=== PATIENT | female | born 1935 | race Caucasian/White ===

== ENCOUNTER → 2016-12-01 | Outpatient (CLI) | payer OTHER, MEDICARE | LOC: BMCIMAGING 13:34 | PROVIDERS: ATTEND Internal Medicine | DX: Z12.31 Encounter for screening mammogram for malignant neoplasm of breast (principal) | CPT/HCPCS: G0202 ==

== ENCOUNTER → 2016-12-04 | Outpatient (CLI) | payer OTHER, MEDICARE | LOC: FIMAGING 11:20 | PROVIDERS: ATTEND Internal Medicine | DX: Z12.39 Encounter for other screening for malignant neoplasm of breast (principal); N63 Unspecified lump in breast; R92.1 Mammographic calcification found on diagnostic imaging of breast | CPT/HCPCS: 76641; G0204 ==

== ENCOUNTER → 2017-05-18 | Outpatient (CLI) | payer OTHER, MEDICARE | LOC: FIMAGING 11:43 | PROVIDERS: ATTEND Internal Medicine | DX: R92.0 Mammographic microcalcification found on diagnostic imaging of breast (principal) | CPT/HCPCS: G0206 ==

== ENCOUNTER 2017-10-29 06:41 | Emergency (ER) | payer OTHER, MEDICARE ==
[2017-10-29 06:57] LABS: PLATELET COUNT 154 10^3/uL (150-400)
[2017-10-29] MEDS ORDERED: ACETAMINOPHEN 500 MG TAB ONE (06:59)
[2017-10-29] MEDS ORDERED: ACETAMINOPHEN 500 MG TAB PO ONE (07:01)
[2017-10-29] MEDS ORDERED: NS 1,000 ML IV ONE (07:04)
--- NOTE | 2017-10-29 07:04 | EDPHY ---
H & P Time Seen by Provider: 10/29/17 07:02 HPI/ROS: Chief complaint. Shortness of breath, fever HPI. 82-year-old female presents to the emergency department with 3 day history of chills and fever. She and her return over the weekend from a 10 day trip to [place]. No known exposures. She denies congestion or upper respiratory symptoms. Denies cough. No chest pain. Some short of breath and increased work to breathe. No abdominal pain, nausea vomiting or diarrhea. No rash. No urinary symptoms. No unusual pain or swelling to her legs. ROS Constitutional. Fever and chills Eyes. no problems with vision ENT. no sore throat, no nasal drainage Cardiovascular. no chest pain Respiratory. Slight shortness of breath Abdominal. no abdominal pain, no nausea/vomiting, no diarrhea . no problems urinating MS. no calf pain/swelling, no neck/back pain, no joint pain Skin. no rash Lymph. no swollen glands Neuro. no headache, no dizziness, no difficulty walking or with speech Past Medical/Surgical History: Arthritis, asthma, hypertension, back surgery Social History: , nonsmoker, no alcohol Smoking Status: Never smoked Physical Exam: General Appearance: Alert well-developed female mild distress vital signs significant for temp 38.5 degrees. Eyes: Pupils equal and round no pallor or injection. ENT, Mouth: Mucous membranes are dry. Respiratory: There are no retractions, lungs are clear to auscultation. Cardiovascular: Regular rate and rhythm. Gastrointestinal: Abdomen is soft and nontender, no masses, bowel sounds normal. Neurological: Awake and alert, sensory and motor exams grossly normal. Skin: Warm and dry, no rashes. Musculoskeletal: Neck is supple nontender. Extremities symmetrical, full range of motion. Psychiatric: Patient is oriented X 3, there is no agitation. Constitutional: Initial Vital Signs Temperature (C) 38.5 C H 10/29/17 06:44 Heart Rate 97 10/29/17 06:44 Respiratory Rate 20 10/29/17 06:44 Blood Pressure 146/70 H 10/29/17 06:44 O2 Sat (%) 93 10/29/17 06:44 O2 Delivery Mode Nasal Cannula O2 (L/minute) 1 Allergies/Adverse Reactions: No Known Allergies Allergy (Verified 10/29/17 06:43) Home Medications: Medication Instructions Recorded Amiloride 5 mg PO DAILY 03/22/16 Ascorbic Acid [Vitamin C 250 mg 250 mg PO .Q 3 DAYS 03/22/16 (*)] Cholecalciferol Vit D3 [Vitamin D3 2,000 units PO DAILY 03/22/16 2000 units tab (OTC)] Ferrous Sulfate [Ferrous Sulf 325 325 mg PO .Q 3 DAYS 03/22/16 MG (*)] Magnesium Oxide 250 mg PO BID 03/22/16 Nebivolol HCl [Bystolic 5 mg (*)] 5 mg PO DAILY 03/22/16 Olmesartan/Hydrochlorothiazide 1 each PO DAILY 03/22/16 [Benicar Hct 40-25 mg Tablet] celeCOXIB [CeleBREX] 100 mg PO BID 03/22/16 traMADol [Ultram 50 mg (*)] 50 mg PO BID 03/22/16 Albuterol [Proventil Inhaler HFA 2 puffs IH Q4 #1 mdi 03/23/16 (*)] Oseltamivir Phosphate [Tamiflu 75 75 mg PO BID #10 cap 03/23/16 mg (*)] Cephalexin [Keflex (*)] 500 mg PO TID #21 cap 10/29/17 Medical Decision Making - Diagnostics Imaging Results: Imaging Impressions Chest X-Ray 10/29/17 07:03 Impression: 1. Suspect airways disease. 2. Basilar opacities are probably atelectasis or scarring. 3. Borderline cardiac enlargement. Chest x-ray interpreted by me shows no obvious pneumonia Procedures: IV normal saline with initial target of 1 L. Sepsis workup. ED Course/Re-evaluation: Re-evaluation 8:00 a.m.. Patient is stable and without complaints Urine is sent for culture sensitivity IV Rocephin in the emergency department Re-evaluation 9:05 a.m. Patient is stable. She and I discussed imaging and lab results. We discussed treatment plan including criteria for return importance of follow-up and further evaluation. She expresses understanding and agreement Differential Diagnosis: I considered sepsis, pneumonia. No evidence for pneumonia. No evidence for sepsis. Mild dehydration. Evidence for urinary tract infection. I think that the patient can be safely treated as an outpatient. - Data Points Laboratory Results: Laboratory Results 10/29/17 06:45 10/29/17 06:45 10/29/17 10/29/17 10/29/17 08:35 07:24 06:45 WBC RBC Hgb Hct MCV MCH MCHC RDW Plt Count MPV Neut % (Auto) Lymph % (Auto) [place] % (Auto) Eos % (Auto) Baso % (Auto) Nucleat RBC Rel Count Absolute Neuts (auto) Absolute Lymphs (auto) Absolute Monos (auto) Absolute Eos (auto) Absolute Basos (auto) Absolute Nucleated RBC Immature Gran % Immature Gran # RBC/WBC/PLT Morphology Platelet Estimate PT INR APTT VBG Lactic Acid 1.7 mmol/L mmol/L (0.7-2.1) Sodium Potassium Chloride Carbon Dioxide Anion Gap BUN Creatinine Estimated GFR Glucose Calcium Total Bilirubin 0.7 mg/dL mg/dL (0.1-1.4) Urine Color YELLOW Urine Appearance HAZY Urine pH 7.0 (5.0-7.5) Ur Specific [place] 1.014 (1.002-1.030) Urine Protein 2+ H (NEGATIVE) Urine Ketones NEGATIVE (NEGATIVE) Urine Blood 1+ H (NEGATIVE) Urine Nitrate POSITIVE H (NEGATIVE) Urine Bilirubin NEGATIVE (NEGATIVE) Urine Urobilinogen NEGATIVE EU EU (0.2-1.0) Ur Leukocyte Esterase TRACE H (NEGATIVE) Urine RBC 10-15 /hpf H /hpf (0-3) Urine WBC 25-50 /hpf H /hpf (0-3) Ur Epithelial Cells TRACE /lpf /lpf (NONE-1+) Urine Bacteria TRACE /hpf H /hpf (NONE SEEN) Urine Mucus TRACE /lpf /lpf (NONE-1+) Urine Glucose NEGATIVE (NEGATIVE) 10/29/17 10/29/17 10/29/17 06:45 06:45 06:45 WBC 5.84 10^3/uL 10^3/uL (3.80-9.50) RBC 4.31 10^6/uL 10^6/uL (4.18-5.33) Hgb 13.5 g/dL g/dL (12.6-16.3) Hct 40.0 % % (38.0-47.0) MCV 92.8 fL fL (81.5-99.8) MCH 31.3 pg pg (27.9-34.1) MCHC 33.8 g/dL g/dL (32.4-36.7) RDW 12.6 % % (11.5-15.2) Plt Count 154 10^3/uL 10^3/uL (150-400) MPV 10.4 fL fL (8.7-11.7) Neut % (Auto) 86.7 % H % (39.3-74.2) Lymph % (Auto) 4.3 % L % (15.0-45.0) [place] % (Auto) 7.7 % % (4.5-13.0) Eos % (Auto) 0.5 % L % (0.6-7.6) Baso % (Auto) 0.3 % % (0.3-1.7) Nucleat RBC Rel Count 0.0 % % (0.0-0.2) Absolute Neuts (auto) 5.06 10^3/uL 10^3/uL (1.70-6.50) Absolute Lymphs (auto) 0.25 10^3/uL L 10^3/uL (1.00-3.00) Absolute Monos (auto) 0.45 10^3/uL 10^3/uL (0.30-0.80) Absolute Eos (auto) 0.03 10^3/uL 10^3/uL (0.03-0.40) Absolute Basos (auto) 0.02 10^3/uL 10^3/uL (0.02-0.10) Absolute Nucleated RBC 0.00 10^3/uL 10^3/uL (0-0.01) Immature Gran % 0.5 % % (0.0-1.1) Immature Gran # 0.03 10^3/uL 10^3/uL (0.00-0.10) RBC/WBC/PLT Morphology TNP Platelet Estimate TNP PT 13.5 SEC SEC (12.0-15.0) INR 1.01 (0.83-1.16) APTT 30.6 SEC SEC (23.0-38.0) VBG Lactic Acid Sodium 141 mEq/L mEq/L (135-145) Potassium 4.9 mEq/L mEq/L (3.3-5.0) Chloride 106 mEq/L mEq/L (97-110) Carbon Dioxide 22 mEq/l mEq/l (22-31) Anion Gap 13 mEq/L mEq/L (8-16) BUN 38 mg/dL H mg/dL (7-23) Creatinine 1.3 mg/dL H mg/dL (0.6-1.0) Estimated GFR 39 Glucose 167 mg/dL H mg/dL (70-100) Calcium 9.7 mg/dL mg/dL (8.5-10.4) Total Bilirubin Urine Color Urine Appearance Urine pH Ur Specific [place] Urine Protein Urine Ketones Urine Blood Urine Nitrate Urine Bilirubin Urine Urobilinogen Ur Leukocyte Esterase Urine RBC Urine WBC Ur Epithelial Cells Urine Bacteria Urine Mucus Urine Glucose Medications Given: Ceftriaxone Sodium/Dextrose (Rocephin 1 Gm (Premix)) 50 mls @ 100 mls/hr IV EDNOW ONE PRN Reason: Protocol Stop: 10/29/17 09:32 Last Admin: 10/29/17 09:16 Dose: 50 mls Discontinued Medications Acetaminophen (Tylenol) 1,000 mg PO EDNOW ONE Stop: 10/29/17 07:02 Last Admin: 10/29/17 07:03 Dose: 1,000 mg Sodium Chloride (Ns) 1,000 mls @ 0 mls/hr IV EDNOW ONE; Wide Open PRN Reason: Protocol Stop: 10/29/17 07:05 Last Admin: 10/29/17 07:06 Dose: 1,000 mls Departure - Departure Disposition: Home, Routine, Self-Care Clinical Impression: Urinary tract infection Qualifiers: Urinary tract infection type: site unspecified Hematuria presence: with hematuria Qualified Code(s): N39.0 - Urinary tract infection, site not specified ; R31.9 - Hematuria, unspecified; R31.9 - Hematuria, unspecified Condition: Good Instructions: Urinary Tract Infection in Women (ED) Additional Instructions: Increase fluids as your blood work shows you to be somewhat dehydrated. Cephalexin as antibiotic. Tylenol 650 mg every 4-6 hours, ibuprofen 400 mg every 6 hr as needed for fever Return for worsening fever, vomiting, abdominal discomfort Recheck in 2 days if not improving Referrals: Patient,NotPresent [Unknown] - As per Instructions Prescriptions: Cephalexin [Keflex (*)] 500 mg PO TID #21 cap
[2017-10-29 07:18] LABS: INR 1.01 (0.83-1.16); PROTIME(PATIENT) 13.5 SEC (12.0-15.0)
[2017-10-29 09:41] VITALS: BP 98/59
== END 2017-10-29 09:39 | disposition home or self-care (01) ==
LOC: EDUNIT#
DX: N39.0 Urinary tract infection, site not specified (principal); J45.909 Unspecified asthma, uncomplicated; I10 Essential (primary) hypertension; B96.20 Unspecified Escherichia coli [E. coli] as the cause of diseases classified elsewhere; E86.9 Volume depletion, unspecified
CPT/HCPCS: 71046; 96365; 99284; J0696

== ENCOUNTER 2017-10-30 09:29 | Inpatient (IN) | payer OTHER, MEDICARE ==
--- NOTE | 2017-10-30 09:41 | EDPHY ---
HPI/HX/ROS/PE/MDM Narrative: CHIEF COMPLAINT: E. coli in blood culture HPI: The patient is an 82 y/o female returning to the emergency department after her blood cultures from yesterday revealed E. coli. She recently returned from a road trip to [place]. Yesterday she was seen in this emergency department for shortness of breath, chills, and fever. She was started on Cephalexin and discharged home. This morning her blood cultures revealed E. coli and she was advised to return to the emergency department for admission to the hospital. She is still feeling short of breath. Denies chest pain, abdominal pain, vomiting, diarrhea, urinary complaints, numbness, paresthesias, fever. REVIEW OF SYSTEMS: Aside from elements discussed in the HPI, a comprehensive 10-point review of systems was reviewed and is negative. PMH: Arthritis, asthma, hypertension, back surgery SOCIAL HISTORY: at bedside, lives in [place], retired PHYSICAL EXAM: General: Patient is alert, in no acute distress. ENT: Eyes are normal to inspection. ENT inspection normal. Neck: Normal inspection. Full range of motion. Respiratory: No respiratory distress. Breath sounds normal bilaterally. Cardiovascular: Regular rate and rhythm. Strong peripheral pulses. Normal cap refill. Abdomen: The abdomen is nontender to palpation. There are no peritoneal signs. There are normal bowel sounds. Back: Normal to inspection. No tenderness to palpation. Skin: Normal color. No rash. Warm and dry. Extremities: Normal appearance. Full range of motion. Neuro: Oriented x3. Normal motor function. Normal sensory function. ED Course: 1140: Patient's lactate has decreased from 2.2 to 1.4. 2gm IV Rocephin and fluids given. 1142: Consulted with hospitalist service, Dr. Godfrey accepts admission of this patient. Patient is comfortable with plan for admission. MDM: This patient presents with E.coli bacteremia, presumably from a urinary source. She looks remarkably well on exam, and shows no signs of septic shock. She will require treatment with IV antibiotics and careful monitoring. I see no signs of PNA, PE, ACS or acute abdomen. - Data Points Imaging Results: Imaging Impressions Chest X-Ray 10/30/17 10:35 Impression: Bronchitis and bibasilar atelectasis. No definite pneumonia or effusion. Imaging: I viewed and interpreted images myself Laboratory Results: Laboratory Results 10/30/17 09:55 10/30/17 09:55 10/30/17 10/30/17 10/30/17 11:18 11:18 09:55 WBC RBC Hgb Hct MCV MCH MCHC RDW Plt Count MPV Neut % (Auto) Lymph % (Auto) [place] % (Auto) Eos % (Auto) Baso % (Auto) Nucleat RBC Rel Count Absolute Neuts (auto) Absolute Lymphs (auto) Absolute Monos (auto) Absolute Eos (auto) Absolute Basos (auto) Absolute Nucleated RBC Immature Gran % Immature Gran # RBC/WBC/PLT Morphology Platelet Estimate VBG Lactic Acid 1.4 mmol/L mmol/L (0.7-2.1) Sodium 140 mEq/L mEq/L (135-145) Potassium 4.9 mEq/L mEq/L (3.3-5.0) Chloride 105 mEq/L mEq/L (97-110) Carbon Dioxide 24 mEq/l mEq/l (22-31) Anion Gap 11 mEq/L mEq/L (8-16) BUN 42 mg/dL H mg/dL (7-23) Creatinine 1.2 mg/dL H mg/dL (0.6-1.0) Estimated GFR 43 Glucose 175 mg/dL H mg/dL (70-100) Calcium 9.3 mg/dL mg/dL (8.5-10.4) Urine Color YELLOW Urine Appearance CLEAR Urine pH 7.0 (5.0-7.5) Ur Specific [place] 1.014 (1.002-1.030) Urine Protein NEGATIVE (NEGATIVE) Urine Ketones NEGATIVE (NEGATIVE) Urine Blood NEGATIVE (NEGATIVE) Urine Nitrate NEGATIVE (NEGATIVE) Urine Bilirubin NEGATIVE (NEGATIVE) Urine Urobilinogen NEGATIVE EU EU (0.2-1.0) Ur Leukocyte Esterase NEGATIVE (NEGATIVE) Urine Glucose NEGATIVE (NEGATIVE) 10/30/17 10/30/17 09:55 09:55 WBC 5.19 10^3/uL 10^3/uL (3.80-9.50) RBC 4.28 10^6/uL 10^6/uL (4.18-5.33) Hgb 13.3 g/dL g/dL (12.6-16.3) Hct 40.3 % % (38.0-47.0) MCV 94.2 fL fL (81.5-99.8) MCH 31.1 pg pg (27.9-34.1) MCHC 33.0 g/dL g/dL (32.4-36.7) RDW 12.8 % % (11.5-15.2) Plt Count 171 10^3/uL 10^3/uL (150-400) MPV 10.9 fL fL (8.7-11.7) Neut % (Auto) 81.8 % H % (39.3-74.2) Lymph % (Auto) 11.4 % L % (15.0-45.0) [place] % (Auto) 3.9 % L % (4.5-13.0) Eos % (Auto) 2.1 % % (0.6-7.6) Baso % (Auto) 0.6 % % (0.3-1.7) Nucleat RBC Rel Count 0.0 % % (0.0-0.2) Absolute Neuts (auto) 4.25 10^3/uL 10^3/uL (1.70-6.50) Absolute Lymphs (auto) 0.59 10^3/uL L 10^3/uL (1.00-3.00) Absolute Monos (auto) 0.20 10^3/uL L 10^3/uL (0.30-0.80) Absolute Eos (auto) 0.11 10^3/uL 10^3/uL (0.03-0.40) Absolute Basos (auto) 0.03 10^3/uL 10^3/uL (0.02-0.10) Absolute Nucleated RBC 0.00 10^3/uL 10^3/uL (0-0.01) Immature Gran % 0.2 % % (0.0-1.1) Immature Gran # 0.01 10^3/uL 10^3/uL (0.00-0.10) RBC/WBC/PLT Morphology TNP Platelet Estimate TNP VBG Lactic Acid 2.2 mmol/L H D mmol/L (0.7-2.1) Sodium Potassium Chloride Carbon Dioxide Anion Gap BUN Creatinine Estimated GFR Glucose Calcium Urine Color Urine Appearance Urine pH Ur Specific [place] Urine Protein Urine Ketones Urine Blood Urine Nitrate Urine Bilirubin Urine Urobilinogen Ur Leukocyte Esterase Urine Glucose Medications Given: Discontinued Medications Sodium Chloride (Ns) 1,900 mls @ 3,800 mls/hr 30 ml/kg infuse over 30 min ( 1900 ml) IV EDNOW ONE PRN Reason: Protocol Stop: 10/30/17 10:39 Last Admin: 10/30/17 10:18 Dose: 1,900 mls General Time Seen by Provider: 10/30/17 09:35 Initial Vital Signs: Initial Vital Signs Temperature (C) 36.8 C 10/30/17 09:35 Heart Rate 75 10/30/17 09:35 Respiratory Rate 22 H 10/30/17 09:35 Blood Pressure 123/73 H 10/30/17 09:35 O2 Sat (%) 91 L 10/30/17 09:35 O2 Delivery Mode Room Air Allergies/Adverse Reactions: No Known Allergies Allergy (Verified 10/30/17 09:34) Home Medications: Medication Instructions Recorded Amiloride 5 mg PO DAILY 03/22/16 Cholecalciferol Vit D3 [Vitamin D3 2,000 units PO DAILY 03/22/16 2000 units tab (OTC)] Ferrous Sulfate [Ferrous Sulf 325 325 mg PO DAILY 03/22/16 MG (*)] Magnesium Oxide 500 mg PO HS 03/22/16 Nebivolol HCl [Bystolic 5 mg (*)] 5 mg PO DAILY 03/22/16 Olmesartan/Hydrochlorothiazide 1 each PO DAILY 03/22/16 [Benicar Hct 40-25 mg Tablet] celeCOXIB [CeleBREX] 100 mg PO BID 03/22/16 traMADol [Ultram 50 mg (*)] 50 mg PO DAILY 03/22/16 Ascorbic Acid [Vitamin C 500 mg 500 mg PO DAILY 10/30/17 (*)] Aspirin [Aspirin 81mg (*)] 81 mg PO DAILY 10/30/17 levOFLOXACIN [levAQUIN (*)] 750 mg PO Q2D #5 tab 11/01/17 Departure - Departure Disposition: [facility] Clinical Impression: Shortness of breath, Bacteremia due to Escherichia coli Condition: Fair Report Scribed for: Sam Hunter Report Scribed by: Klarissa Espinal Date of Report: 10/30/17 Time of Report: 09:41 Physician Review and Approval Statement: Portions of this note were transcribed by an ED scribe. I personally performed the history, physical exam, and medical decision making; and confirm the accuracy of the information in the transcribed note.
[2017-10-30 10:07] LABS: PLATELET COUNT 171 10^3/uL (150-400)
[2017-10-30] MEDS ORDERED: NS 1,900 ML IV ONE (10:10)
[2017-10-30] MEDS ORDERED: cefTRIAXone 2 GM in STERILE WATER INJ 20 ML IV ONE (11:35)
[2017-10-30] MEDS ORDERED: ACETAMINOPHEN 325 MG TAB PO PRN (12:11)
[2017-10-30] MEDS ORDERED: ONDANSETRON 4 MG/2 ML VIAL IVP PRN (12:11)
[2017-10-30] MEDS ORDERED: ONDANSETRON DISINTEGRATING 4 MG TAB PO PRN (12:11)
[2017-10-30] MEDS ORDERED: traMADol 50 MG TAB PO PRN (12:14)
--- NOTE | 2017-10-30 12:16 | ASMTCMCOM ---
CM Note CM Note Notes: Pt admitted for bacteremia r/t E. coli. Pt was seen in the ED yesterday and discharged home w/Keflex. Pt's blood cultures came back +E.coli so pt was asked to return to [facility] ED. Pt lives in [place] with her , Joshua. Pt's PCP is Dr Dawna Francis. Anticipate DC home w/ family once stabilized. CM to follow. Date Signed: 10/30/2017 12:15 PM Electronically Signed By:Marielos Yanez RN
[2017-10-30] MEDS: ACETAMINOPHEN 500 MG TAB PO SCH ×2 (13:52→21:05)
--- NOTE | 2017-10-30 15:10 | PDGENHP ---
History and Physical - Chief Complaint fever, chills, bacteremia - History of Present Illness 82 yo female with h/o arthritis and hypertension was called back to the ED for positive blood cultures one day after evaluation for fever. She and her recently drove home from [place], arriving home on Thursday. She noticed on Thursday at a PT appointment for her shoulder that she felt cold / chilled. She later developed rigors, then had a fever to 103. During the night she had ongoing shaking chills. A physician made a house call visit and no treatment was provided other than tylenol. Her later called an ambulance and she was brought to the ED on 10/29. Blood cultures were drawn. A UA was done and was abnormal. She received IV Ceftriaxone and was discharged home with oral antibiotics as she had a normal lactate, normal wbc count, and stable vital signs. Today, she was called back to the ED due to positive blood cultures with E coli. She actually feels a little better today, is no longer having fevers, rigors or chills. She denies urinary symptoms. Her biggest complaint today and the main symptom she had yesterday is dyspnea on exertion. She denies CP or pleuritic symptoms, but feels more short of breath than normal. She has an O2 sat of 90% on room air. She states this is normal for her. She has a h/o asthma, but denies an active exacerbation. No wheezing. In the ED, she was given her 2nd dose of Ceftriaxone and is admitted for further management. History Information - Allergies/Home Medication List Allergies/Adverse Reactions: No Known Allergies Allergy (Verified 10/30/17 09:34) Home Medications: Amiloride 5 mg PO DAILY 03/22/16 [Last Taken 10/30/17] Cholecalciferol Vit D3 [Vitamin D3 2000 units tab (OTC)] 2,000 units PO DAILY [Last Taken 10/30/17] Ferrous Sulfate [Ferrous Sulf 325 MG (*)] 325 mg PO DAILY 03/22/16 [Last Taken 10/30/17] Magnesium Oxide 500 mg PO HS 03/22/16 [Last Taken 10/29/17] Nebivolol HCl [Bystolic 5 mg (*)] 5 mg PO DAILY 03/22/16 [Last Taken 10/30/17] Olmesartan/Hydrochlorothiazide [Benicar Hct 40-25 mg Tablet] 1 each PO DAILY [Last Taken 10/30/17] celeCOXIB [CeleBREX] 100 mg PO BID 03/22/16 [Last Taken 10/30/17] traMADol [Ultram 50 mg (*)] 50 mg PO DAILY 03/22/16 [Last Taken 10/29/17] Ascorbic Acid [Vitamin C 500 mg (*)] 500 mg PO DAILY 10/30/17 [Last Taken ] Aspirin [Aspirin 81mg (*)] 81 mg PO DAILY 10/30/17 [Last Taken 10/30/17] I have personally reviewed and updated: family history, medical history, social history, surgical history - Past Medical History arthritis, asthma, hypertension - Surgical History Additional surgical history: b/l TKA. spinal fusion - Family History Positive for: non-pertinent - Social History Smoking Status: Never smoked Alcohol Use: Other (1 glass of wine per dayh) Additional social history: , lives in [facility] Review of Systems Review of Systems: ROS: 10pt was reviewed & negative except for what was stated in HPI & below Physical Exam Physical Exam: Temp Pulse Resp BP Pulse Ox 36.8 C 61 20 140/77 H 90 L 10/30/17 13:01 10/30/17 13:01 10/30/17 13:01 10/30/17 13:01 10/30/17 13:01 Constitutional: no apparent distress Eyes: PERRL Ears, Nose, Mouth, Throat: moist mucous membranes Cardiovascular: regular rate and rhythym Respiratory: no respiratory distress, clear to auscultation, reduced air movement Gastrointestinal: normoactive bowel sounds, soft, non-tender abdomen Skin: warm Musculoskeletal: full muscle strength Neurologic: AAOx3 Psychiatric: interacting appropriately Lab Data & Imaging Review 10/30/17 09:55 10/30/17 09:55 WBC 5.19 10^3/uL (3.80-9.50) 10/30/17 09:55 RBC 4.28 10^6/uL (4.18-5.33) 10/30/17 09:55 Hgb 13.3 g/dL (12.6-16.3) 10/30/17 09:55 Hct 40.3 % (38.0-47.0) 10/30/17 09:55 MCV 94.2 fL (81.5-99.8) 10/30/17 09:55 MCH 31.1 pg (27.9-34.1) 10/30/17 09:55 MCHC 33.0 g/dL (32.4-36.7) 10/30/17 09:55 RDW 12.8 % (11.5-15.2) 10/30/17 09:55 Plt Count 171 10^3/uL (150-400) 10/30/17 09:55 MPV 10.9 fL (8.7-11.7) 10/30/17 09:55 Neut % (Auto) 81.8 % (39.3-74.2) H 10/30/17 09:55 Lymph % (Auto) 11.4 % (15.0-45.0) L 10/30/17 09:55 [place] % (Auto) 3.9 % (4.5-13.0) L 10/30/17 09:55 Eos % (Auto) 2.1 % (0.6-7.6) 10/30/17 09:55 Baso % (Auto) 0.6 % (0.3-1.7) 10/30/17 09:55 Nucleat RBC Rel Count 0.0 % (0.0-0.2) 10/30/17 09:55 Absolute Neuts (auto) 4.25 10^3/uL (1.70-6.50) 10/30/17 09:55 Absolute Lymphs (auto) 0.59 10^3/uL (1.00-3.00) L 10/30/17 09:55 Absolute Monos (auto) 0.20 10^3/uL (0.30-0.80) L 10/30/17 09:55 Absolute Eos (auto) 0.11 10^3/uL (0.03-0.40) 10/30/17 09:55 Absolute Basos (auto) 0.03 10^3/uL (0.02-0.10) 10/30/17 09:55 Absolute Nucleated RBC 0.00 10^3/uL (0-0.01) 10/30/17 09:55 Immature Gran % 0.2 % (0.0-1.1) 10/30/17 09:55 Immature Gran # 0.01 10^3/uL (0.00-0.10) 10/30/17 09:55 RBC/WBC/PLT Morphology TNP 10/30/17 09:55 Platelet Estimate TNP 10/30/17 09:55 VBG Lactic Acid 1.4 mmol/L (0.7-2.1) 10/30/17 11:18 Sodium 140 mEq/L (135-145) 10/30/17 09:55 Potassium 4.9 mEq/L (3.3-5.0) 10/30/17 09:55 Chloride 105 mEq/L (97-110) 10/30/17 09:55 Carbon Dioxide 24 mEq/l (22-31) 10/30/17 09:55 Anion Gap 11 mEq/L (8-16) 10/30/17 09:55 BUN 42 mg/dL (7-23) H 10/30/17 09:55 Creatinine 1.2 mg/dL (0.6-1.0) H 10/30/17 09:55 Estimated GFR 43 10/30/17 09:55 Glucose 175 mg/dL (70-100) H 10/30/17 09:55 Calcium 9.3 mg/dL (8.5-10.4) 10/30/17 09:55 Urine Color YELLOW 10/30/17 11:18 Urine Appearance CLEAR 10/30/17 11:18 Urine pH 7.0 (5.0-7.5) 10/30/17 11:18 Ur Specific [place] 1.014 (1.002-1.030) 10/30/17 11:18 Urine Protein NEGATIVE (NEGATIVE) 10/30/17 11:18 Urine Ketones NEGATIVE (NEGATIVE) 10/30/17 11:18 Urine Blood NEGATIVE (NEGATIVE) 10/30/17 11:18 Urine Nitrate NEGATIVE (NEGATIVE) 10/30/17 11:18 Urine Bilirubin NEGATIVE (NEGATIVE) 10/30/17 11:18 Urine Urobilinogen NEGATIVE EU (0.2-1.0) 10/30/17 11:18 Ur Leukocyte Esterase NEGATIVE (NEGATIVE) 10/30/17 11:18 Urine Glucose NEGATIVE (NEGATIVE) 10/30/17 11:18 Visualized and Interpreted Chest x-ray results: Yes Chest X-Ray results: no infiltrate, other (mild cardiomegaly, peribronchial thickening) Visualized and Interpreted EKG results: Yes EKG Interpretation: Positive for: normal sinsus rhythm, NS ST wave abnormalities Assessment & Plan Assessment: E coli bacteremia secondary to UTI - No urinary symptoms, but UCx also growing E coli. Clinically improving on Ceftriaxone. No sepsis physiology. -cont IV Ceftriaxone -await sensitivities -may be able to transition to oral fluoroquinolone to complete tx course if sensitive to FQ, could run this by ID tomorrow Dyspnea on exertion - new symptom, mild hypoxemia and recent travel. It's prudent to r/o PE. -send d dimer and f/u with CTA if positive -echo ordered given chronicity of hypoxemia (O2 sats 90% on room air on prior visits per chart review) Asthma - no evidence of exacerbation, though bronchial thickening noted on CXR -prn albuterol Hypertension - normotensive on arrival -cont bystolic -hold amiloride and benicar for now as a precaution with bacteremia, resume in am if BP warrants Suspected CKD - Cr 1.2 today, baseline appears to be ~1.1 over past 2 yrs. Hyperglycemia - bg 175 on arrival, likely due to infection. No h/o DM, but will send a1c Arthritis - tylenol Full code DVT PPLX - Lovenox Dispo - admit to inpatient, anticipate >48 hrs hospitalization for ongoing management of bacteremia
[2017-10-30] MEDS: ENOXAPARIN 40 MG/0.4 ML SYR SC SCH (16:31)
[2017-10-30] MEDS ORDERED: ALBUTEROL 3 ML DEYVIAL IH PRN (16:38)
--- NOTE | 2017-10-30 17:30 | PDMN ---
Medical Necessity Medical necessity: C/M review: est. > 2 MN LOS for eval and TX of acute and persistent E. coli bacteremia secondary to urinary tract infection, dyspnea on exertion, hyperglycemia likely due to infection requiring planned CTA chest, echocardiogram, ongoing IV Ceftriaxone, pulse oximetry, supplemental o2, acute inpt PT/OT, comorbid 10/29/2017 ED visit UA abnormal, blood cultures drawn, patient treated with IV Ceftriaxone and discharged on oral antibiotics, patient called back to ED as blood cx positive for E. coli, asthma, hypertension, suspected chronic kidney disease per H/P.
[2017-10-30] MEDS ORDERED: IOPAMIDOL (ISOVUE 370) 100 ML BTL IV ONE (17:31)
--- NOTE | 2017-10-30 17:53 | ECHO ---
[email or web address] [address] [address] Main: [phone] Fax: Transthoracic Echocardiogram Name: CESILIA DOMINGO MR#: [id number] Study Date: 10/30/2017 Study Time: 04:57 PM Date of : 1935 Age: 82 year(s) Height: 149.9 cm (59 in.) Weight: 61.69 kg (136 lb.) BSA: 1.57 m2 Gender: Female Examination: Echo Indication: Dyspnea on exertion Image Quality: Adequate Contrast: Requested by: Sabrina Godfrey BP: 131 mmHg/84 mmHg Heart Rate: Rhythm: Indication: Dyspnea on exertion Procedure Staff Manager Ship: Jacqueline Mckeon RDCS Reading Physician: Zheng Rosas MD Requesting Provider: Conclusions: No pericardial effusion. Ejection fraction 63%. Mitral annular calcification with qzae-wa-bpihikzf mitral regurgitation. Right ventricular systolic pressure is elevated at 66 mm of mercury with mild tricuspid regurgitation. Suggestion of right ventricular hypertrophy with preserved RV systolic function. Tissue Doppler suggests elevated filling pressures. Measurements: Chambers Valvular Assessment AV/MV Valvular Assessment TV/PV Normal Normal Normal Name Value Range Name Value Range Name Value Range Ao Glendy (2D): 2.8 cm (1.4 cm-2.6 AV Vmax: 1.80 m/s (1 m/s-1.7 TR Vmax: 3.89 mm/s ( - ) cm) m/s) TR PGmax: 61 mmHg ( - ) IVSd (2D): 1.0 cm (0.6 cm-1.1 AV meanP mmHg ( - ) syst. PAP: 66 mmHg ( - ) cm) GRACIA (VTI): 2.5 cm ( - ) PV Vmax: 0.94 m/s (0.6 m/s-0.9 LVDd (2D): 4.0 cm (3.9 cm-5.3 MV E Vmax: 0.94 m/s ( - ) m/s) cm) MV A Vmax: 1.68 m/s ( - ) PV PGmax: 4 mmHg ( - ) LVDs (2D): 2.2 cm (2.1 cm-4 MV E/A: 0.56 ( - ) cm) MV PHT: 0.109 s ( - ) LVPWd (2D): 0.9 cm ( - ) MVA (PHT): 2.0 s ( - ) LVOTd 1.8 cm 1.8 cm mm LVEF (BP): 63 % (>=55 %) RVDd(2D): 3.2 cm (1.9 cm-3.8 cmmm) Continued Measurements: Chambers Valvular Assessment AV/MV Valvular Assessment TV/PV Name Value Name Value Name Value LADs: 3.7 cm MV DecTime: 338 m/s CVP (est.): 5 mmHg LADs Lon.2 cm MV E' Septal: 0.05 m/s LA Area: 16.4 cm2 MV E/E' Septal: 19.30 Patient: CESILIA DOMINGO Study Date: 10/30/2017 Page 1 of 2 04:57 PM LA Volume: 48 ml MV E/E' Lateral: 21.40 LA Volume Index: 30.6 ml/m2 RA Area: 12.4 cm2 Additional Vessels Name Value Ao Ascendin.1 cm Inferior Vena Cava: 1.4 cm Findings: Left Ventricle: Normal size left ventricle. No LV hypertrophy. Normal global systolic LV function. EF is 63 %. No regional wall motion abnormality. Diastolic dysfunction is present. . Right Ventricle: Normal size right ventricle. Normal RV function. Left Atrium: The left atrium is normal in size. Right Atrium: The right atrium is normal in size. Mitral Valve: The mitral valve is normal in appearance and function. Mild mitral valve leaflet calcification is present. Mild to moderate mitral regurgitation. No mitral stenosis is present. Aortic Valve: The aortic valve is tri-leaflet. Aortic sclerosis is present. Trivial aortic valve regurgitation. No aortic valve stenosis is present. Tricuspid Valve: The tricuspid valve is normal in appearance and function. Mild tricuspid regurgitation is present. The pulmonary artery pressure is moderately increased. Right ventricular systolic pressure measures 66mmHg. Pulmonic Valve: The pulmonic valve is normal in appearance and function. There is no pulmonic regurgitation seen. Aorta: The aorta is normal. Normal size aortic root measuring 2.8 cm. Normal size ascending aorta measuring 3.1 cm. IVC: The IVC is normal sized. Pericardium: No pericardial effusion. No pleural effusion. (No Signature Object) Patient: CESILIA DOMINGO Study Date: 10/30/2017 Page 2 of 2 04:57 PM [id number]
[2017-10-30] MEDS ORDERED: MAGNESIUM OXIDE 500 MG PO SCH (21:00)
[2017-10-30] MEDS: MAGNESIUM OXIDE 400 MG TAB PO SCH (21:04)
[2017-10-31] MEDS: ACETAMINOPHEN 500 MG TAB PO SCH ×3 (07:24→20:31)
[2017-10-31] MEDS: cefTRIAXone 2 GM in STERILE WATER INJ 20 ML IV SCH (08:51)
[2017-10-31] MEDS: NEBIVOLOL HCL 5 MG TAB PO SCH (08:52)
[2017-10-31] MEDS: FERROUS SULFATE 325 MG TAB PO SCH (08:52)
[2017-10-31] MEDS: ASPIRIN 81 MG CHEWABLE TAB PO SCH (08:53)
[2017-10-31] MEDS: ENOXAPARIN 40 MG/0.4 ML SYR SC SCH (08:59)
--- NOTE | 2017-10-31 09:24 | HOSPPROG ---
Hospitalist Progress Note Assessment/Plan: #E coli bacteremia: -readmitted with positive/blood cultures 10/29 -cont IV CTX. Change to LQ at dc for total 2 weeks #Dyspnea: no PE on CTA. Echo shows moderate pulm HTN, preserved RV function. Altitude may be playing role. No CP #Asthma: no e/o exacerbation #HTN: restart Benicar. Do not rec Amiloride given age, CKD #JAYCE on CKD: Cr down to 1.0 (BL 1.1) #Weakness: PT/OT #Disp: cont inpatient admission for IV abx, PT. Subjective: SOB improved Objective: Vital Signs Temp Pulse Resp BP Pulse Ox 36.9 C 77 16 171/91 H 91 L 10/31/17 08:00 10/31/17 08:00 10/31/17 08:00 10/31/17 08:00 10/31/17 08:00 Laboratory Results 10/31/17 04:27 10/30/17 10/31/17 11/01/17 05:59 05:59 05:59 Intake Total 2200 Balance 2200 - Physical Exam Constitutional: no apparent distress Eyes: PERRL, EOMI Ears, Nose, Mouth, Throat: hearing normal Cardiovascular: regular rate and rhythym, no murmur, rub, or gallop, No edema Respiratory: no respiratory distress, no rales or rhonchi Gastrointestinal: normoactive bowel sounds, soft, non-tender abdomen Genitourinary: no bladder fullness, No ramon in urethra Skin: warm Musculoskeletal: full muscle strength Neurologic: AAOx3, CN II-XII Intact ICD10 Worksheet Patient Problems: Problems Problem Status Onset Bacteremia due to Escherichia coli Acute Shortness of breath Acute Hypoxia Acute Pneumonia Acute
[2017-10-31] MEDS: HYDROCHLOROTHIAZIDE 25 MG TAB PO SCH (11:26)
[2017-10-31] MEDS: OLMESARTAN MEDOXOMIL 20 MG TAB PO SCH (11:26)
--- NOTE | 2017-10-31 14:40 | ASMTCMCOM ---
CM Note CM Note Notes: CM spoke w/PT, no needs. Pt cleared to go home, anticipate will dc home w/support of when medically stable. CM available for any changes. DC Plan: Independent Date Signed: 10/31/2017 02:39 PM Electronically Signed By:Milagros Calhoun RN
[2017-10-31] MEDS: MAGNESIUM OXIDE 400 MG TAB PO SCH (20:31)
[2017-11-01] MEDS: ACETAMINOPHEN 500 MG TAB PO SCH (05:26)
[2017-11-01] MEDS: NEBIVOLOL HCL 5 MG TAB PO SCH (08:07)
[2017-11-01] MEDS: ASPIRIN 81 MG CHEWABLE TAB PO SCH (08:08)
[2017-11-01] MEDS: ENOXAPARIN 40 MG/0.4 ML SYR SC SCH (08:08)
[2017-11-01] MEDS: FERROUS SULFATE 325 MG TAB PO SCH (08:08)
[2017-11-01] MEDS: HYDROCHLOROTHIAZIDE 25 MG TAB PO SCH (09:46)
[2017-11-01] MEDS: OLMESARTAN MEDOXOMIL 20 MG TAB PO SCH (09:46)
[2017-11-01] MEDS: cefTRIAXone 2 GM in STERILE WATER INJ 20 ML IV SCH (09:46)
[2017-11-01 11:09] VITALS: BP 161/95
--- NOTE | 2017-11-01 15:52 | GDS ---
[f rep st] DISCHARGE SUMMARY DISCHARGE DIAGNOSES: 1. Escherichia coli bacteremia. 2. Urinary tract infection. 3. Dyspnea. 4. Hypertension. 5. Asthma. 6. Acute kidney injury on chronic kidney disease. HISTORY OF PRESENT ILLNESS: A pleasant 82-year-old female with history of hypertension, asthma who was called back to the ER for positive blood cultures 1 day after evaluation for fever. She and her recently drove home from [place], arriving here on Thursday. Thursday at physical therapy point she noticed that she felt cold and chilled. She later developed rigors and then had a fever to 103. During the night, she had ongoing shaking chills. Physician made a house call and no treatment was provided other than Tylenol. later called ambulance and brought to the ED on 10/28. Blood cultures were drawn. UA was done, abnormal, and she received IV ceftriaxone, and was discharged home on Keflex. On 10/30, she was called back to the emergency room with a positive blood culture for E coli. She states she is actually feeling better. No longer having fevers, chills, or sweats. Denies dysuria. Her biggest complaint was shortness of breath, especially with walking. Denies any chest pain. HOSPITAL COURSE: 1. E coli bacteremia: Secondary to UTI. Symptoms are much improved here. She was not septic and hemodynamically stable. She did not have a white count or fevers here. She was treated with IV ceftriaxone and transition to Levaquin for a total of 14 days. This was renally dosed given her age and creatinine clearance. I did educate the patient and her on the side effects of Levaquin and they were agreeable for treatment. 2. Dyspnea: Suspect this was altitude related. She had a CT-A that was negative for PE, but echocardiogram shows moderate pulmonary hypertension. She does have LUH and is compliant with her CPAP. I recommended she follow up with a brim setter as an outpatient. 3. Asthma. No evidence of exacerbation. 4. Hypertension. Resume home medications. 5. Acute kidney injury and chronic kidney disease. Suspect this is dehydration with decreased p.o. intake. This is now resolved. Creatinine is at 1. DISPOSITION: Patient is stable for discharge home. NEW MEDICATIONS: Levaquin 750 mg qod x5. FOLLOW UP: 1. Dr. Francis. 2. Referral to pulmonology for pulmonary hypertension. PHYSICAL EXAMINATION: VITAL SIGNS: Today, temperature 36.6, blood pressure 161 /95, heart rate in 70s, 90% on room air. GENERAL: Well-appearing, sitting in chair, smiling, in no acute distress. HEENT: PERRLA. EOMI. Moist mucous membranes. CV: Regular rate and rhythm. No murmurs, gallops, or rubs. No lower extremity edema. LUNGS: Clear. No crackles, wheezing. ABDOMEN: Soft, nontender, nondistended. : No suprapubic or CVA tenderness. MUSCULOSKELETAL : 5/5 upper lower extremity strength. NEUROLOGIC: 2 through 12 intact. PSYCH : Alert oriented x3. Time spent on discharge greater than 35 minutes at bedside with patient, her counseling on medications and followup plan. /[id number]/MODL MTDD
== END 2017-11-01 12:33 | disposition home or self-care (01) | DRG 690 ==
LOC: OBSVTOIN 11:43 → F3E 13:00
PROVIDERS: ADMIT Hospitalist; ATTEND Hospitalist
DX: N39.0 Urinary tract infection, site not specified (principal); R78.81 Bacteremia; N17.9 Acute kidney failure, unspecified; B96.20 Unspecified Escherichia coli [E. coli] as the cause of diseases classified elsewhere; E86.0 Dehydration; R06.09 Other forms of dyspnea; I12.9 Hypertensive chronic kidney disease with stage 1 through stage 4 chronic kidney disease, or unspecified chronic kidney disease; N18.9 Chronic kidney disease, unspecified; J45.909 Unspecified asthma, uncomplicated; Z96.653 Presence of artificial knee joint, bilateral
CPT/HCPCS: 96365; 97161-GP; 97165-GO; G8978-GP-CH; G8979-GP-CH; G8980-GP-CH; G8987-GO-CI; G8988-GO-CI; G8989-GO-CI; J0696; J1650; J7613; Q9967

== ENCOUNTER → 2017-12-02 | Outpatient (CLI) | payer OTHER, MEDICARE | LOC: FIMAGING 09:53 | PROVIDERS: ATTEND Internal Medicine | DX: Z12.31 Encounter for screening mammogram for malignant neoplasm of breast (principal) ==

== ENCOUNTER 2018-08-24 05:28 | Day surgery (SDC) | payer OTHER, MEDICARE ==
--- NOTE | 2018-08-23 15:02 | SOAPPROG ---
SOAP Progress Note Assessment/Plan: HISTORY AND PHYSICAL Name CESILIA DOMINGO (82yo, F) ID# [id number] 1935 Service Dept. MAIN OFFICE Provider LIMA CHRISTIANSON PA-C Insurance Med Primary: [place]) Insurance # : [id number] Med Secondary: AARP (MEDICARE SUPPLEMENT) Insurance # : [id number] Prescription: ORX - Member is eligible. details Chief Complaint Pt is here today for her right shoulder surgical discussion Patient's Care Team Primary Care Provider: COLE RUSSO MD: [facility] [place] [address], Ph , Patient's Pharmacies [facility][phone] (ERX): [phone] [facility] [phone], Ph [phone], Vitals Ht: 4 ft 10 in 08/18/2018 10:06 am Wt: 137 lbs 08/18/2018 10:06 am BMI: 28.6 08/18/2018 10:06 am BP: 157/80 08/18/2018 10:04 am Pulse: 72 bpm 08/18/2018 10:05 am Allergies Reviewed Allergies MOLD: Cough NKDA Medications Reviewed Medications aMILoride 5 mg tablet 05/10/18 filled [facility] betamethasone acetate and sodium phos 6 mg/mL suspension for injection Take by injection route 09/11/17 administered Jose Schwartz M.D. Bystolic 5 mg tablet 08/13/18 filled [facility] celecoxib 100 mg capsule 05/24/18 filled [facility] cephALEXin 500 mg capsule 10/29/17 filled [facility] Fluzone High-Dose [id number] (PF) 180 mcg/0.5 mL intramuscular syringe ADM 0.5ML IM UTD 01/30/18 filled su[facility]cripts gatifloxacin 0.5 % eye drops 08/14/17 filled [facility] iron 08/14/17 entered M'Alondra Nick ketorolac 0.5 % eye drops 08/21/17 filled [facility] levoFLOXacin 750 mg tablet 11/01/17 filled [facility] olmesartan 40 mg-hydrochlorothiazide 25 mg tablet 08/13/18 filled [facility] oxyCODONE 5 mg tablet Take 1 tablet(s) every 4 hours by oral route as needed. 08/18/18 prescribed LIMA CHRISTIANSON PA-C OxyCONTIN 10 mg tablet,crush resistant,extended release Take 1 tablet(s) every 12 hours by oral route for 3 days. 08/18/18 prescribed LIMA CHRISTIANSON PA-C prednisoLONE acetate 1 % eye drops,suspension 08/28/17 filled [facility] Shingrix (PF) 50 mcg/0.5 mL intramuscular suspension, kit 07/28/18 filled [facility] traMADol 50 mg tablet 05/31/18 filled [facility] Vaccines None recorded. Problems Reviewed Problems No known problems Localized, primary osteoarthritis of the shoulder region - Onset: 05/19/2018, Left Localized, primary osteoarthritis of the shoulder region - Onset: 05/19/2018, Right Arthritis of hand - Onset: 05/19/2018, Left Acquired trigger finger - Onset: 09/11/2017 Paresthesia of upper limb - Onset: 09/11/2017 Family History Reviewed Family History Social History Reviewed Social History Smoking Status: Never smoker Non-smoker Occupation: Retired Employer: none Chewing tobacco: none Alcohol intake: Occasional Alcohol-years of use: 60 Caffeine intake: Occasional Illicit drugs: none Exercise level: Moderate Sporting activities: warm water walking Hand Dominance: Bilateral Education: Post Graduate Live alone or with others?: with others Surgical History Reviewed Surgical History Orthopaedic Surgery - 06/08/2015 Orthopaedic Surgery - 06/08/2013 Orthopaedic Surgery - 06/08/2006 MACHINE ICER History (not configured) Obstetric History None recorded. Past Pregnancies None recorded. Past Medical History Reviewed Past Medical History Anemia: Y Arthritis: Y Asthma: Y Migraines: Y Osteoporosis: Y Sleep Apnea: Y Screening None recorded. HPI This is a very pleasant 82 year old LHD female with: - -- bilateral open CTR by another physician -11/08/14 -- right shoulder MRI ([facility]) -- end-stage rotator cuff tear arthropathy -04/12/15 -- left shoulder MRI ([facility]) -- end-stage rotator cuff tear arthropathy -04/12/15 -- left shoulder CT ([facility]) -- end-stage rotator cuff tear arthropathy - 2014 -- right shoulder evaluation by Dr. Ellis with recommendation for reverse TSA -08/26/17 -- cervical spine MRI -- multilevel DDD, DJD, and central canal stenosis -09/02/17 -- BUE EMG/NCS with minimal to mild R>L CTS -bilateral index and long finger numbness and tingling -right long finger tigger finger -09/11/17 -- left carpal tunnel injection - intermittent numbness and tingling on the left side -02/04/18 -- right shoulder glenohumeral joint injection by Lili Abarca PA-C ( [facility]) with 6 weeks of symptomatic relief -05/18/18 -- fall onto her outstretched LUE with pain overlying her dorsal left ring finger metacarpal -05/21/18 -- right shoulder MRI -- end-stage right shoulder rotator cuff tear arthropathy -05/31/18 -- right shoulder glenohumeral joint injection with 90% relief for 2- 3 months She presents today to discuss her treatment options for her right shoulder. RENAE MACDONALD as noted in the HPI Physical Exam Patient is an 82-year-old female. Bilateral finger examination Inspection/palpation: Right: Soft, no tenderness to palpation. Left: Mild bruising overlying the dorsal and ulnar hand, minimal TTP overlying the dorsal ring finger metacarpal Finger ROM Index MCP: 0-80 / 0-80 / 0-80 PIP: 0-105 / 0-105 / 0-105 DIP: 0-75 / 0-75 / 0-75 Long MCP: 0-90 / 0-90 / 0-90 PIP: 0-105 / 0-105 / 0-105 DIP: 0-75 / 0-75 / 0-75 Ring MCP: 0-95 / 0-90 / 0-95 PIP: 0-105 / 0-100 / 0-105 DIP: 0-75 / 0-70 / 0-75 Small MCP: 0-100 / 0-100 / 0-100 PIP: 0-105 / 0-105 / 0-105 DIP: 0-75 / 0-75 / 0-75 Finger motor and sensory Index FDS: + / + / + FDP: + / + / + EDC: + / + / + RDN: + / + / + UDN: + / + / + Long FDS: + / + / + FDP: + / + / + EDC: + / + / + RDN: + / + / + UDN: + / + / + Ring FDS: + / + / + FDP: + / + / + EDC: + / + / + RDN: + / + / + UDN: + / + / + Small FDS: + / + / + FDP: + / + / + EDC: + / + / + RDN: + / + / + UDN: + / + / + Bilateral shoulder examination Inspection/palpation: Right: Normal resting posture. Left: Normal resting posture Shoulder ROM (R / L / Normal) Forward flexion: 80 / 80 / 170 Abduction: 70 / 70 / 160 Extension: 30 / 30 / 40 Shoulder strength (R / L / Normal) Deltoid : 10/10 / 5 Biceps: 10/10 / 5 Shoulder sensory (R / L / Normal) Axillary: + / + / + Assessment / Plan This is a very pleasant 82 year old LHD female with: - -- bilateral open CTR by another physician -11/08/14 -- right shoulder MRI ([facility]) -- end-stage rotator cuff tear arthropathy -04/12/15 -- left shoulder MRI ([facility]) -- end-stage rotator cuff tear arthropathy -04/12/15 -- left shoulder CT ([facility]) -- end-stage rotator cuff tear arthropathy - 2014 -- right shoulder evaluation by Dr. Ellis with recommendation for reverse TSA and subsequent referral to Luis Armando Ruano MD -08/26/17 -- cervical spine MRI -- multilevel DDD, DJD, and central canal stenosis -09/02/17 -- BUE EMG/NCS with minimal to mild R>L CTS -bilateral index and long finger numbness and tingling -right long finger tigger finger -09/11/17 -- left carpal tunnel injection - intermittent numbness and tingling on the left side -02/04/18 -- right shoulder glenohumeral joint injection by Lili Abarca PA-C ( [facility]) with 6 weeks of symptomatic relief -05/18/18 -- fall onto her outstretched LUE with pain overlying her dorsal left ring finger metacarpal -05/21/18 -- right shoulder MRI -- end-stage right shoulder rotator cuff tear arthropathy -05/31/18 -- right shoulder glenohumeral joint injection with 90% relief for 2- 3 months For the right shoulder: -I have discussed with the patient the RBAC associated with both non-operative ( specifically, observation, NSAIDs, activity modifications, PT, injection) and operative (specifically, right reverse total shoulder arthroplasty) forms of treatment. -The patient fully understands the RBAC associated with both forms of treatment and wishes to proceed with surgery - She has signed the informed consent form for surgery and surgery will be scheduled for the near future. -Post op RX for Oxycontin and Oxycodone were given today -Applied a post op sling that she will bring to the hospital. For the left hand: - Initiate WBAT on LUE - Continue with finger, thumb, and wrist ROM - FU as needed 1. Pain in right hand M79.641: Pain in right hand 2. Paresthesia of upper limb R20.2: Paresthesia of skin 3. Acquired trigger finger M65.30: Trigger finger, unspecified finger 4. Hand pain - Left M79.642: Pain in left hand 5. Shoulder pain - Right M25.511: Pain in right shoulder OxyContin 10 mg tablet,crush resistant,extended release - Take 1 tablet(s) every 12 hours by oral route for 3 days. Qty: 6 tablet(s) Refills: 0 Pharmacy: N/A oxycodone 5 mg tablet - Take 1 tablet(s) every 4 hours by oral route as needed. Qty: 40 tablet(s) Refills: 0 Pharmacy: N/A 6. Arthritis of hand - Left M13.842: Other specified arthritis, left hand 7. Localized, primary osteoarthritis of the shoulder region - Right M19.011: Primary osteoarthritis, right shoulder Encounter Sign-Off Encounter signed-off by LIMA CHRISTIANSON PA-C 08/23/18 15:01 ICD10 Worksheet Patient Problems: Problems Problem Status Onset Bacteremia due to Escherichia coli Acute Hypoxia Acute Pneumonia Acute Shortness of breath Acute
[2018-08-24] MEDS ORDERED: LR 1,000 ML IV ONE (05:46)
[2018-08-24] MEDS ORDERED: ceFAZolin 2 GM/DEXTROSE 100 ML IV ONE (06:45)
--- NOTE | 2018-08-24 06:46 | PDHPUP ---
History & Physical Update H&P update statement: This history and physical update is based on an assessment of the patient which was completed after admission or registration (within 24 hours), but prior to the surgery/procedure. H&P update: H&P reviewed & patient examined, no change in patient's condition since H&P completed
--- NOTE | 2018-08-24 06:48 | PDANEPAE ---
ANE History of Present Illness OA shoulder ANE Past Medical History - Cardiovascular History Hx Hypertension: Yes Hx Arrhythmias: No Hx Chest Pain: No Hx Coronary Artery / Peripheral Vascular Disease: Yes Hx CHF / Valvular Disease: Yes Hx Palpitations: No - Pulmonary History Hx COPD: No Hx Asthma/Reactive Airway Disease: No Hx Recent Upper Respiratory Infection: No Hx Oxygen in Use at Home: No Hx Sleep Apnea: No Sleep Apnea Screening Result - Last Documented: Positive Pulmonary History Comment: [facility] USES C-PAP - Neurologic History Hx Cerebrovascular Accident: No Hx Seizures: No Hx Dementia: No - Endocrine History Hx Diabetes: No Hypothyroid: No Hyperthyroid: No Obesity: no - Renal History Hx Renal Disorders: No - Liver History Hx Hepatic Disorders: No - Neurological & Psychiatric Hx Hx Neurological and Psychiatric Disorders: No - Cancer History Hx Cancer: No - Congenital Disorder History Hx Congenital Disorders: No - GI History GERD: no Hx Gastrointestinal Disorders: No - Other Health History Other Health History: ANEMIA. OSTEOARTHRITIS. KIMBERLY SHLDR LIMITED ROM - Chronic Pain History Chronic Pain: Yes - Surgical History Prior Surgeries: LUMBAR FUSION. KIMBERLY TOTAL KNEE. KIMBERLY CATARACT. KIMBERLY CARPAL TUNNEL ANE Review of Systems Review of systems is: negative Review of Systems: - Exercise capacity METS (RN): 4 METS ANE Patient History - Allergies Allergies/Adverse Reactions: No Known Allergies Allergy (Verified 10/30/17 09:34) - Home Medications Home medications: home medication list seen and reviewed Home Medications: Cholecalciferol Vit D3 [Vitamin D3 2000 units tab (OTC)] 2,000 units PO DAILY [Last Taken 08/23/18] Ferrous Sulfate [Ferrous Sulf 325 MG (*)] 325 mg PO DAILY 03/22/16 [Last Taken 08/24/18] Magnesium Oxide 500 mg PO HS 03/22/16 [Last Taken 08/23/18] Nebivolol HCl [Bystolic 5 mg (*)] 5 mg PO DAILY 03/22/16 [Last Taken 08/23/18] Olmesartan/Hydrochlorothiazide [Benicar Hct 40-25 mg Tablet] 1 each PO DAILY [Last Taken 08/23/18] celeCOXIB [CeleBREX] 100 mg PO DAILY 03/22/16 [Last Taken 08/24/18] traMADol [Ultram 50 mg (*)] 50 mg PO DAILY 03/22/16 [Last Taken 08/23/18] Ascorbic Acid [Vitamin C 500 mg (*)] 500 mg PO DAILY 10/30/17 [Last Taken ] Aspirin [Aspirin 81mg (*)] 81 mg PO DAILY 10/30/17 [Last Taken 08/23/18] Tylenol TID 08/17/18 [Last Taken 08/23/18] Amiloride 08/24/18 [Last Taken 08/23/18] - NPO status NPO Since - Liquids (Date): 08/24/18 NPO Since - Liquids (Time): 05:00 NPO Since - Solids (Date): 08/23/18 NPO Since - Solids (Time): 18:00 - Anes Hx Anes Hx: no prior problems - Smoking Hx Smoking Status: Never smoked - Family Anes Hx Family Anes Hx: none ANE Labs/Vital Signs - Vital Signs Blood Pressure: 145/85 Heart Rate: 75 Respiratory Rate: 16 O2 Sat (%): 90 Height: 147.32 cm Weight: 62.142 kg ANE Physical Exam - Airway Neck exam: FROM Mallampati Score: Class 2 Mouth exam: normal dental/mouth exam - Pulmonary Pulmonary: no respiratory distress, clear to auscultation - Cardiovascular Cardiovascular: regular rate and rhythym, no murmur, rub, or gallop - ASA Status ASA Status: III ANE Anesthesia Plan Anesthesia Plan: general endotracheal anesthesia, GA w LMA Regional Anesthesia: interscalene BP NB
[2018-08-24] MEDS ORDERED: PROPOFOL/EMULSION 500 MG/50 ML BOTTLE IV ONE (06:51)
[2018-08-24] MEDS ORDERED: LIDOCAINE 2% 5 ML SDV ONE (06:52)
[2018-08-24] MEDS ORDERED: BUPIVACAINE 0.5% 30 ML SDV ONE (06:59)
[2018-08-24] MEDS ORDERED: POLYMYXIN B SULFATE 500,000 UNIT/10 ML SYR IRR ONE (06:59)
[2018-08-24] MEDS ORDERED: LIDOCAINE 1% 300 MG/30 ML SDV ONE (06:59)
[2018-08-24] MEDS ORDERED: BACITRACIN 50,000 UNITS/10 ML SYR IRR ONE (07:00)
[2018-08-24] MEDS ORDERED: ROCURONIUM 50 MG/5 ML VIAL ONE ×2 (07:35→09:36)
[2018-08-24] MEDS ORDERED: ceFAZolin 1 GM VIAL ONE ×2 (07:35)
[2018-08-24] MEDS ORDERED: DEXAMETHASONE 4 MG/ML VIAL ONE (07:52)
[2018-08-24] MEDS ORDERED: ePHEDrine SULFATE 25 MG/5 ML SYR ONE (08:27)
[2018-08-24] MEDS ORDERED: PHENYLEPHRINE HCL 100 MCG/ML SYR ONE ×2 (10:39→10:40)
[2018-08-24] MEDS ORDERED: ONDANSETRON 4 MG/2 ML VIAL ONE ×2 (10:39→11:55)
[2018-08-24] MEDS ORDERED: fentaNYL 100 MCG/2 ML INJ IVP PRN (10:42)
[2018-08-24] MEDS ORDERED: ONDANSETRON 4 MG/2 ML VIAL IVP PRN (10:42)
[2018-08-24] MEDS ORDERED: HYDROmorphONE/DILAUDID 2 MG/ML INJ IVP PRN (10:42)
[2018-08-24] MEDS ORDERED: PROMETHAZINE HCL 25 MG/ML INJ IVP PRN (10:42)
[2018-08-24] MEDS ORDERED: PHENYLEPHRINE HCL 100 MCG/ML SYR IVP PRN (10:42)
[2018-08-24] MEDS ORDERED: NALOXONE HCL 0.4 MG/ML INJ IVP PRN (10:42)
--- NOTE | 2018-08-24 10:42 | POSTANESTH ---
Post Anesthetic Evaluation Cardiovascular Status: Normal, Stable Respiratory Status: Normal, Stable Level of Consciousness/Mental Status: Can Participate in Eval Pain Control: Adequate, Prn Tx Ordered Nausea/Vomiting Control: Adequate, Prn Tx Ordered Complications Possibly Related to Anesthesia: None Noted
[2018-08-24] MEDS ORDERED: SUGAMMADEX SODIUM 200 MG/2 ML VIAL IVP ONE (10:44)
[2018-08-24] MEDS ORDERED: METOPROLOL TARTRATE 5 MG/5 ML INJ ONE (10:49)
--- NOTE | 2018-08-24 15:34 | PDHOMEO2F ---
Home Oxygen Face to Face Home Orders: I certify that a physician or a nurse practitioner or physician's pharmacy innovation assistant has had a exbc-of-lgxa encounter with this patient on the date of this order due to the diagnosis listed, which relates to the primary reason the patient requires home oxygen. Alternative treatments have been tried, or considered, and deemed ineffective. It is anticipated that supplemental oxygen will result in improvement with treatment. Home oxygen qualifying diagnosis: desaturation SpO2 on room air (%): 90 Frequency of home oxygen needed: with activity, continuous, during sleep Home oxygen liters per minute: 2 Home oxygen delivery device: nasal cannula Concentrator: Yes E-tanks for mobility and back up: Yes If ordering portable O2, is the patient mobile in the home?: Yes I certify that, based on these findings, the home oxygen is medically necessary for this patient for the following length of time. Length of time home oxygen needed: 1 week
[2018-08-24 16:13] VITALS: BP 135/75
--- NOTE | 2018-08-24 20:59 | GOP ---
[f rep st] OPERATIVE REPORT DATE OF OPERATION: 08/24/2018 SURGEON: Jose Schwartz MD TAPPER HELPER: Natalya , MARYA. PREOPERATIVE DIAGNOSIS: Right shoulder rotator cuff tear, arthritis. POSTOPERATIVE DIAGNOSIS: Right shoulder rotator cuff tear, arthritis. PROCEDURE PERFORMED: 1. Right reverse total shoulder arthroplasty. 2. Right shoulder rotator cuff repair. 3. Right shoulder long head of biceps tenodesis. FINDINGS: ESTIMATED BLOOD LOSS: 50 cc. DESCRIPTION OF PROCEDURE: A very pleasant 82-year-old female who underwent a right reverse total fan ulder arthroplasty. This is the operative report. COMPLICATIONS: None. IMPLANTS: Equinox reverse shoulder glenoid base plate; Equinox reverse shoulder 4.5 mm compression s crews including a 38 mm, another 38 mm, a 22 mm, and an 18 mm; Equinox reverse shoulder Glenosphere l ocking screw; Equinox reverse shoulder glenosphere 38 mm; Equinox humeral stem primary press-fit 7 mm in diameter; Equinox reverse shoulder humeral adapter tray +0 mm; Equinox reverse shoulder 38 mm hum eral liner +0 mm. /[id number]/MODL
== END 2018-08-24 18:07 | disposition home or self-care (01) ==
LOC: FSGY 05:28
PROVIDERS: ATTEND Orthopaedic Surgery Hand Surgery
PROC: 0RRJ00Z Replacement of Right Shoulder Joint with Reverse Ball and Socket Synthetic Substitute, Open Approach (ICD-10-PCS; principal; 2018-08-24 07:15)
DX: M19.011 Primary osteoarthritis, right shoulder (principal); M75.111 Incomplete rotator cuff tear or rupture of right shoulder, not specified as traumatic; I10 Essential (primary) hypertension; I35.1 Nonrheumatic aortic (valve) insufficiency; J45.909 Unspecified asthma, uncomplicated; I77.9 Disorder of arteries and arterioles, unspecified; G47.33 Obstructive sleep apnea (adult) (pediatric); Z96.653 Presence of artificial knee joint, bilateral; Z98.1 Arthrodesis status
CPT/HCPCS: C1713; J0690; J1100; J2370; J2405; J2704

== ENCOUNTER → 2018-11-03 | Outpatient (CLI) | payer OTHER, MEDICARE | LOC: BHFA 10:45 | PROVIDERS: ATTEND Internal Medicine Cardiovascular Disease | DX: R01.1 Cardiac murmur, unspecified (principal) ==

== ENCOUNTER → 2018-12-03 | Outpatient (CLI) | payer OTHER, MEDICARE | LOC: FIMAGING 13:28 ==